=== PATIENT | female | born 1980 | race Caucasian/White ===

== ENCOUNTER → 2016-08-25 | Outpatient (CLI) | payer OTHER ==
[~2016-08-25] MED LIST: BACTRIM DS 8001 TAB PO; FLEXERIL 1010 MG/TAB PO; LOMOTIL 0.025 M1 TAB PO; LORTAB ELIX0.5 MG/ML PO; MULTIPLE VITAMI1 CAP PO; MVI; NAPROSYN500 MG PO; NO HOME MEDICATIONS; PERCOCET 325 MG1 TA2 PO; PHENERGAN1.25 MG/ML PO; PRILOSEC 20MG20 MG PO; VANCOCIN H250 MG/CAP PO
== END ==
LOC: MC.RAD 13:50
DX: N63 Unspecified lump in breast (principal); N60.11 Diffuse cystic mastopathy of right breast; N60.12 Diffuse cystic mastopathy of left breast

== ENCOUNTER 2022-07-28 17:07 | Inpatient (IN) | payer BC ==
[~2022-07-28] VITALS: Ht 22.9 cm; Wt 60.0 kg
[~2022-07-28 17:07] MED LIST changes: -BENTYL 10MG10 MG/CAP PO; -CRANBERRY450 MG PO; -FLONASEALLERGY NS; -MULTI VITAMINS1 TAB PO; -PROBIOTIC BLEN1 EACH PO; -RT ADVAIR 228 DISKUS IH; -VITAMIN D31000 I1 PO
[2022-07-28 18:38] LABS: HEMATOCRIT 42.1 % (37.0-47.0); HEMOGLOBIN 14.3 g/dl (12.5-16.0); MEAN CELL VOLUME 103 fl (80.0-100.0); MEAN CORPUSCULAR HEMOGLOBIN 35 pg (27-31); MEAN CORPUSCULAR HGB CONC 34 g/dl (33.0-37.0); MEAN PLATELET VOLUME 10.7 fl (7.4-10.4); PLATELET COUNT 402 K/mm3 (130-400); REDCELL DISTRIBUTION WIDTH-CV 11.6 % (11.5-14.5)
[2022-07-28 18:45] LABS: EOS % 1.7 % (0.0-4.0); GRAN % 57.8 % (42.2-75.2); MONO % 8.4 % (1.7-9.3)
[2022-07-28 19:02] LABS: ALANINE AMINOTRANSFERASE 28 U/L (0-55); ALBUMIN 4.2 gm/dL (3.5-5.0); ALKALINE PHOSPHATASE 57 U/L (40-150); ANION GAP 11 mmol/L (7-16); AST,SGOT 17 U/L (5-34); BILIRUBIN,TOTAL 0.6 mg/dL (0.2-1.2); BLOOD UREA NITROGEN 6 mg/dL (7-19); CALCIUM 10.2 mg/dL (8.4-10.2); CARBON DIOXIDE 28 mmol/L (22-29); CHLORIDE 103 mmol/L (98-107); CREATININE, serum 0.77 mg/dL (0.57-1.11); GLUCOSE 91 mg/dL (70-99); POTASSIUM 3.7 mmol/L (3.5-4.5); SODIUM 142 mmol/L (136-145); TOTAL PROTEIN 8.4 gm/dL (6.2-8.1)
[2022-07-28 19:08] LABS: TROPONIN-I < 0.010 ng/mL (0.00-0.033)
[2022-07-28] MEDS ORDERED: BENTYL 10MG10 MG/CAP PO (21:00)
[2022-07-28] MEDS ORDERED: MULTI VITAMINS1 TAB PO (21:00)
[2022-07-28] MEDS ORDERED: PROBIOTIC BLEN1 EACH PO (21:00)
[2022-07-28] MEDS ORDERED: FLONASEALLERGY NS (21:00)
[2022-07-28] MEDS ORDERED: VITAMIN D31000 I1 PO (21:01)
[2022-07-28] MEDS ORDERED: CRANBERRY450 MG PO (21:01)
[2022-07-28 22:11] VITALS: BP 98/65; PULSE 79; TEMP 97.6
--- NOTE | 2022-07-28 23:44 | NUR ---
PATIENT ARRIVED VIA CART ACCOMPANIED BY ED STAFF. THE PATIENT WAS ALERT AND ORIENTED. THE PATIENT WAS ORIENTED TO THE ROOM AND BED CONTROLS. CALL LIGHT WITHIN REACH. WILL MONITOR
[2022-07-29] VITALS (7 sets, daily range): BP systolic 94–117; BP diastolic 53–82; PULSE 58–82; TEMP 97.3–98.4
--- NOTE | 2022-07-29 05:16 | NUR ---
41 yo female admitted for further care and management of acute respiratory failure likely secondary to bibasilar pneumonia that has failed outpatient therapy. ht 175.3 cm wt 59.1 kg SCr 0.77 with estimated CrCl >60 ml/min Plan: Patient initially received a loading dose of vancomycin 1000 mg x1 in the ED (16.9 mg/kg); will follow with a maintenance regimen of vancomycin 750 mg q8h to target a goal trough of 15-20 mcg/ml. Of note, patient had apparent infusion related reaction to first dose of vancomycin, so will increase duration of maintenance infusion from 60 to 90 minutes to help mitigate future reactions. Will follow patient's renal function, micro data, and vancomycin levels as indicated to assess for any necessary changes to regimen. Thank you for this dosing consult.
--- NOTE | 2022-07-29 07:26 | NUR ---
WHILE IN THE PTS ROOM COMPLETING THE ADMISSION FORMS THE PT WAS RECEIVING HER FIRST DOSE OF VANCO. THE PATIENT STARTED TO ITCH AND TURN RED ABOUT HALF WAY THROUGH THE INFUSION. THE INFUSION WAS STOPPED AND THE IV FLUSHED. VITAL SIGNS STABLE. NO AIRWAY DIFFICULTY NOTED. DAGOBERTO TIMMONS APRN NOTIFIED AND UPDATED REGARDING THE POSSIBLE LASHAUN SYNDROME. NEW ORDERS RECEIVED. AFTER THE PATIENT RECEIVED BENEDRYL AND FAMOTIDINE AND THE REDNESS AND ITCHING RESOLVED THE VANCO WAS RESTARTED AT A LESSER RATE AND THE PATIENT TOLERATED IT WITHOUT DIFFICULTY. WILL MONITOR.
--- NOTE | 2022-07-29 08:00 | NUR ---
Patient sitting up in bed, RT at the bed giving a breathing treatment. A&Ox4. VSS. IV CDI, fluids infusing. Denies pain and discomfort. Call light within reach
--- NOTE | 2022-07-29 11:47 | NUR ---
Cake Maker reviewed patient chart noting she has had multiple recent hospital admissions due to outpatient antibiotic failure and pneumonia/strep and sepsis diagnoses. Cake Maker met with patient and spouse Kelly VerasANIA, ([phone]) at bedside. Patient is alert and oriented and gives verbal consent to speak to her with spouse present. She informs they live together in a two-story home in [place], [place], with their dogs. The past week she has been too weak to sleep in her bedroom upstairs and has slept on the couch downstairs. Patient has two adult children Jaden in [place] (currently at their home caring for dogs) and a daughter Kameron in [facility]. Patient is currently working as a [employer] and is a week away from completing her first assignment at [email or web address]. She was planning to re-sign but has backed out of another assignment in August due to her recent illness. She reports she obtains her medications at the [facility] in [place], [place], and she has no difficulty affording them or obtaining them. Patient reports use of no DME at home, and she has no difficulties with ADLs and IADLs, but does feel weak right now. Patient describes fearfulness at becoming short of breath at work, experiencing anxiety, prior to her hospitalization. She would like to assure she sees PT and has her oxygen stats evaluated while walking before she is discharged. This is her only concern for discharge to home. Patient reports belief she has a DPOA-HC at home that she completed with a living will in 2012 prior to traveling to [facility] with her spouse. She states it likely needs updated, but she has no interest in completing a new DPOA-HC at this time. Patient does see Dr. Gann for primary care. *Discharge to home with spouse* *Patient has concern for O2 stats while ambulating and requests this assessed prior to discharge*
--- NOTE | 2022-07-30 02:08 | NUR ---
NURSING SHIFT ASSESSMENT COMPLETED. THE PATIENT WAS ALERT AND ORIENTED AND APPROPRIATE. NO S/S OF DISTRESS NOTED. THE PLAN OF CARE WAS DISCUSSED. FRESH WATER WAS PROVIDED. THE PATIENT DENIED OTHER NEEDS AT THIS TIME. THE PATIENT IS UP INDEPENDENTLY IN THE ROOM WITH A STEADY GAIT. WILL MONITOR.
[2022-07-30 04:30] VITALS: BP 97/52; PULSE 69; TEMP 97.3
[2022-07-30 06:23] LABS: BASO # 0.1 K/mm3 (0.0-0.2); BASO % 1.1 % (0.0-2.0); EOS # 0.2 K/mm3 (0.0-0.7); EOS % 2.6 % (0.0-4.0); GRAN # 2.9 K/mm3 (1.4-6.5); GRAN % 46.6 % (42.2-75.2); LYMPH # 2.6 K/mm3 (1.2-3.4); LYMPH % 41.3 % (20.0-51.0); MEAN CELL VOLUME 104 fl (80.0-100.0); MEAN CORPUSCULAR HGB CONC 34 g/dl (33.0-37.0); MONO # 0.5 K/mm3 (0.1-0.6); MONO % 8.4 % (1.7-9.3); PLATELET COUNT 317 K/mm3 (130-400); RED BLOOD COUNT 3.42 M/mm3 (4.10-5.30); REDCELL DISTRIBUTION WIDTH-CV 11.8 % (11.5-14.5)
[2022-07-30 06:34] LABS: CALCIUM 9.1 mg/dL (8.4-10.2); CREATININE, serum 0.71 mg/dL (0.57-1.11); POTASSIUM 3.8 mmol/L (3.5-4.5)
[2022-07-30 06:37] LABS: HEMATOCRIT 35.4 % (37.0-47.0); MEAN CORPUSCULAR HEMOGLOBIN 35 pg (27-31)
[2022-07-30 06:39] LABS: HEMOGLOBIN 11.9 g/dl (12.5-16.0)
[2022-07-30 07:24] VITALS: BP 99/65; PULSE 74; TEMP 97.8
--- NOTE | 2022-07-30 08:00 | NUR ---
Patient sitting up in bed, A&Ox4. VSS. IV CDI. Reports pain Left lower ribs r/t coughing. Independent in the room. Call light within reach
[2022-07-30] MEDS ORDERED: RT ADVAIR 228 DISKUS IH (09:07)
--- NOTE | 2022-07-30 11:23 | NUR ---
Discharge paperwork reviewed with the patient and at the bedside. Patient verbalized sharon understanding to follow doctors orders. IV removed, tip intact. Gauze and coban applied. Patient ambulated independently to awaiting ER.
--- NOTE | 2022-07-30 12:20 | NUR ---
Medicaid Collection Specialist rounds: Patient and Kelly accepted visit. Discussed sports; K- was in [employer]. Patient and watched the game last night. 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 Patient is concerned about how the upcoming week will be for her. Patient is expecting to go home today. Medicaid Collection Specialist provided supportive listening and prayer.
== END 2022-07-30 11:25 | disposition home or self-care (01) | DRG 193 ==
LOC: COL.ER 17:07 → MEDICAL 19:49
PROVIDERS: Emergency Medicine; Internal Medicine; ADMIT Internal Medicine
DX: J18.9 Pneumonia, unspecified organism (principal); J96.01 Acute respiratory failure with hypoxia; K58.9 Irritable bowel syndrome, unspecified; I95.9 Hypotension, unspecified; K76.9 Liver disease, unspecified; R51.9 Headache, unspecified; E86.0 Dehydration; Z90.710 Acquired absence of both cervix and uterus; Z88.1 Allergy status to other antibiotic agents; Z88.5 Allergy status to narcotic agent; Z88.8 Allergy status to other drugs, medicaments and biological substances; Z87.01 Personal history of pneumonia (recurrent); Z23 Encounter for immunization
CPT/HCPCS: J1200; J1650; J2543; J3370; J7030; J7050; Q9967

== ENCOUNTER → 2022-07-28 | Outpatient (CLI) | payer BC ==
[~2022-07-28] MED LIST changes: +BENTYL 10MG10 MG/CAP PO; +CRANBERRY450 MG PO; +FLONASEALLERGY NS; +MULTI VITAMINS1 TAB PO; +PROBIOTIC BLEN1 EACH PO; +RT ADVAIR 228 DISKUS IH; +VITAMIN D31000 I1 PO
[2022-07-28 15:34] LABS: BASO # 0.1 K/mm3 (0.0-0.2); EOS # 0.1 K/mm3 (0.0-0.7); EOS % 1.9 % (0.0-4.0); GRAN # 4.1 K/mm3 (1.4-6.5); GRAN % 56.6 % (42.2-75.2); HEMATOCRIT 39.1 % (37.0-47.0); HEMOGLOBIN 13.4 g/dl (12.5-16.0); LYMPH # 2.4 K/mm3 (1.2-3.4); LYMPH % 32.7 % (20.0-51.0); MEAN CELL VOLUME 102 fl (80.0-100.0); MEAN CORPUSCULAR HEMOGLOBIN 35 pg (27-31); MEAN CORPUSCULAR HGB CONC 34 g/dl (33.0-37.0); MEAN PLATELET VOLUME 10.6 fl (7.4-10.4); MONO # 0.5 K/mm3 (0.1-0.6); MONO % 7.5 % (1.7-9.3); PLATELET COUNT 364 K/mm3 (130-400); RED BLOOD COUNT 3.84 M/mm3 (4.10-5.30); REDCELL DISTRIBUTION WIDTH-CV 11.6 % (11.5-14.5)
== END ==
LOC: COL.LAB 15:06
PROVIDERS: Family Medicine
DX: R06.02 Shortness of breath (principal)

== ENCOUNTER → 2023-11-02 | Outpatient (CLI) | payer BC ==
[~2023-11-02] MED LIST changes: +BENTYL 10MG10 MG/CAP PO; +CEPHALEXIN500 M1 PO; +CRANBERRY450 MG PO; +FLONASEALLERGY NS; +MULTI VITAMINS1 TAB PO; +PROBIOTIC BLEN1 EACH PO; +RT ADVAIR 228 DISKUS IH; +VITAMIN D31000 I1 PO
== END ==
LOC: MC.RAD 10:55
DX: Z12.31 Encounter for screening mammogram for malignant neoplasm of breast (principal)